=== PATIENT | male | born 1975 | race Caucasian/White ===

== ENCOUNTER 2018-05-08 09:48 | Emergency (ER) | payer SELFPAY ==
[~2018-05-08] VITALS: Ht 162.5 cm; Wt 72.6 kg
[~2018-05-08 09:48] MED LIST: B-1100 MG PO; B12,B-12,B 12500 MC1 PO; BENADRYL25 M1 PO; BENADRYL25 MG PO; CIPRO500 MG PO; CLINDAMYCIN HC300 MG PO; DARVOCET N 1001 TAB PO; DELTASONE10 MG PO; DIPHENHYDRAMINE25 M1 PO; DUONEB 3 MG/3 ML3 M1 INH; FOLIC ACID1 MG PO; HYDROCHLOROTHIA25 MG PO; LIBRIUM10 MG PO; LIDOCAINE VISC100 ML MM; MEDROL DOSEPAK4 MG PO; NKHM; PEPCID20 MG PO; PREDNICOT20 MG PO; PREDNISONE10 MG PO; PREDNISONE20 MG PO; PRILOSEC20 MG PO; TAGAMET300 MG PO; TRAMADOL HCL50 MG PO; TRAMADOL50 MG PO; ULTRAM50 MG PO; VALIUM5 MG PO; VICODIN 5/500 505 MG PO; ZANTAC150 MG PO; ZESTORETIC 12.51 TA2 PO; ZITHROMAX Z PA250 MG PO; [UNRECOGNIZED DRUG - REMARK]
[2018-05-08 10:42] LABS: BASO % 0.3 % (0.0-1.0); HEMATOCRIT 47.8 % (42.0-52.0); LYMPH # 0.9 10*3/uL (1.3-4.4); LYMPH % 13.7 % (27.0-41.0); MEAN CELL VOLUME 94.1 fl (80.0-94.0); MEAN CORPUSCULAR HGB 33.5 pg (27.0-31.0); MEAN CORPUSCULAR HGB CONC 35.6 g/dl (33.0-37.0); MEAN PLATELET VOLUME 9.7 fl (9.6-12.3); MONO # 0.5 10*3/uL (0.1-1.0); MONO % 7.6 % (3.0-9.0); NEUT # 5.1 10*3/uL (2.3-7.9); NEUT % 78.1 % (47.0-73.0); PLATELET COUNT AUTOMATED 195 10*3/uL (130-400); RED BLOOD COUNT 5.08 10*6/uL (4.50-5.90); RED CELL DISTRI WIDTH 13.6 % (0-14.5); WHITE BLOOD COUNT 6.6 10*3/uL (4.8-10.8)
[2018-05-08 10:57] LABS: ALBUMIN 3.9 gm/dl (3.1-4.5); ALKALINE PHOSPHATASE 84 U/L (45-117); BUN 9 mg/dl (7-24); CHLORIDE 95 mmol/L (98-107); CREATININE 0.67 mg/dL (0.70-1.30); LIPASE 130 U/L (73-393); POTASSIUM 4.1 mmol/L (3.5-5.1); SGOT/AST 33 IU/L (3-35); SGPT/ALT 27 U/L (12-78); SODIUM 130 mmol/L (136-145); TOTAL PROTEIN 7.5 gm/dL (6.4-8.2)
[2018-05-08 10:59] LABS: ETHYL ALCOHOL < 3.0 mg/dl (<3)
[2018-05-08] MEDS ORDERED: ZOFRAN ODT4 MG SL (11:37)
[2018-05-08] MEDS ORDERED: ALBUTEROL2.5 MG/0.5 INH (11:37)
== END 2018-05-08 13:02 | disposition home or self-care (01) ==
LOC: ED 09:48
PROVIDERS: Nurse Practitioner Family
DX: R11.0 Nausea (principal); E86.0 Dehydration; J44.9 Chronic obstructive pulmonary disease, unspecified; Z88.6 Allergy status to analgesic agent; Z79.2 Long term (current) use of antibiotics; Z79.899 Other long term (current) drug therapy

== ENCOUNTER → 2018-06-28 | Outpatient (CLI) | payer SELFPAY ==
[~2018-06-28] MED LIST changes: +ALBUTEROL2.5 MG/0.5 INH; +Motrin,Rufen800 MG PO; +ZOFRAN ODT4 MG SL
== END | disposition home or self-care (01) ==
LOC: US 15:52
DX: R94.5 Abnormal results of liver function studies (principal)

== ENCOUNTER 2022-07-27 14:23 | Emergency (ER) | payer BC ==
[~2022-07-27] VITALS: Ht 180.3 cm; Wt 78.0 kg
[2022-07-27 15:11] LABS: BASO % 0.5 % (0.0-1.0); EOS # 0.1 10*3/uL (0.0-0.4); EOS % 1.4 % (1.0-4.0); LYMPH # 2.3 10*3/uL (1.3-4.4); LYMPH % 27.4 % (27.0-41.0); MEAN CELL VOLUME 97.6 fl (80.0-94.0); MEAN CORPUSCULAR HGB 33.5 pg (27.0-31.0); MEAN CORPUSCULAR HGB CONC 34.3 g/dl (33.0-37.0); MONO % 11.3 % (3.0-9.0); NEUT % 59.2 % (47.0-73.0); PLATELET COUNT AUTOMATED 198 10*3/uL (130-400); RED BLOOD COUNT 4.51 10*6/uL (4.50-5.90); RED CELL DISTRI WIDTH 12.4 % (0-14.5); WHITE BLOOD COUNT 8.5 10*3/uL (4.8-10.8)
[2022-07-27 15:26] LABS: ACT PARTIAL THROMBO TIME 31.3 SECONDS (20.0-32.1); INTERNATIONAL NORM RATIO 0.9 (2.0-3.5)
[2022-07-27 15:27] LABS: ALKALINE PHOSPHATASE 87 U/L (46-116); BUN 8 mg/dl (9-23); CHLORIDE 100 mmol/L (98-107); POTASSIUM 3.6 mmol/L (3.4-5.1); SGPT/ALT 19 U/L (10-49)
[2022-07-27] MEDS ORDERED: VIBRA-TAB100 MG PO (17:17)
== END 2022-07-27 17:29 | disposition home or self-care (01) ==
LOC: ED 14:23
PROVIDERS: Emergency Medicine
DX: L03.116 Cellulitis of left lower limb (principal); Z79.899 Other long term (current) drug therapy; Z87.891 Personal history of nicotine dependence

== ENCOUNTER → 2023-03-09 | Outpatient (CLI) | payer BC ==
[~2023-03-09] MED LIST changes: +VIBRA-TAB100 MG PO
[2023-03-09 15:19] LABS: BASO % 0.5 % (0.0-1.0); EOS % 0.3 % (1.0-4.0); HEMATOCRIT 44.5 % (42.0-52.0); LYMPH # 2.5 10*3/uL (1.3-4.4); LYMPH % 41.5 % (27.0-41.0); MEAN CORPUSCULAR HGB 35.3 pg (27.0-31.0); MEAN CORPUSCULAR HGB CONC 35.3 g/dl (33.0-37.0); MEAN PLATELET VOLUME 9.3 fl (9.6-12.3); MONO # 0.5 10*3/uL (0.1-1.0); MONO % 7.8 % (3.0-9.0); NEUT % 49.6 % (47.0-73.0); PLATELET COUNT AUTOMATED 177 10*3/uL (130-400); RED BLOOD COUNT 4.45 10*6/uL (4.50-5.90); RED CELL DISTRI WIDTH 12.2 % (0-14.5); WHITE BLOOD COUNT 6.1 10*3/uL (4.8-10.8)
[2023-03-09 15:48] LABS: ALKALINE PHOSPHATASE 61 U/L (46-116); CHLORIDE 102 mmol/L (98-107); CHOLESTEROL 172 mg/dL (<200); LDL CHOLESTEROL 45 mg/dL (9-159); LIPASE 40 U/L (12-53); POTASSIUM 3.3 mmol/L (3.4-5.1); SGPT/ALT 39 U/L (10-49); TOTAL PROTEIN 6.8 gm/dL (6.0-8.0); TRIGLYCERIDES 263 mg/dl (<150)
[2023-03-09 15:49] LABS: BUN < 5 mg/dl (9-23)
== END | disposition home or self-care (01) ==
LOC: LAB 14:48
PROVIDERS: ATTEND Nurse Practitioner Family
DX: I10 Essential (primary) hypertension (principal); K62.5 Hemorrhage of anus and rectum; F10.10 Alcohol abuse, uncomplicated; Z72.0 Tobacco use

== ENCOUNTER → 2023-04-19 | Outpatient (CLI) | payer OTHER, BC | END | disposition home or self-care (01) | LOC: LAB 09:45 | PROVIDERS: ATTEND Family Medicine | DX: R79.89 Other specified abnormal findings of blood chemistry (principal); R53.83 Other fatigue ==

== ENCOUNTER 2023-05-18 09:09 | Emergency (ER) | payer BC ==
[~2023-05-18] VITALS: Ht 162.5 cm; Wt 68.9 kg
[2023-05-18] MEDS ORDERED: LISINOPRIL-HCT1 EACH PO (10:03)
[2023-05-18] MEDS ORDERED: LISINOPRIL20 MG PO (10:04)
[2023-05-18] MEDS ORDERED: PREDNISONE50 MG PO (11:33)
[2023-05-18] MEDS ORDERED: CYCLOBENZAPRINE10 MG PO (11:33)
== END 2023-05-18 11:54 | disposition home or self-care (01) ==
LOC: ED 09:09
DX: M54.42 Lumbago with sciatica, left side (principal); M79.605 Pain in left leg; F10.10 Alcohol abuse, uncomplicated; F17.200 Nicotine dependence, unspecified, uncomplicated

== ENCOUNTER 2024-07-29 09:54 | Emergency (ER) | payer OTHER ==
[~2024-07-29] VITALS: Ht 162.5 cm; Wt 73.0 kg
[~2024-07-29 09:54] MED LIST changes: +CYCLOBENZAPRINE10 MG PO; +LISINOPRIL-HCT1 EACH PO; +LISINOPRIL20 MG PO; +PREDNISONE50 MG PO
[2024-07-29] MEDS ORDERED: LISINOPRIL-HCT1 EACH PO (13:47)
[2024-07-29] MEDS ORDERED: AVPAK AZITHROM250 MG PO (13:47)
== END 2024-07-29 13:56 | disposition home or self-care (01) ==
LOC: ED 09:54
DX: J44.9 Chronic obstructive pulmonary disease, unspecified (principal); Z20.822 Contact with and (suspected) exposure to COVID-19; I10 Essential (primary) hypertension; K21.9 Gastro-esophageal reflux disease without esophagitis; F10.10 Alcohol abuse, uncomplicated; F17.200 Nicotine dependence, unspecified, uncomplicated

== ENCOUNTER 2024-08-13 11:48 | Emergency (ER) | payer OTHER ==
[~2024-08-13 11:48] MED LIST changes: +AVPAK AZITHROM250 MG PO
[2024-08-13] MEDS ORDERED: PREDNISONE20 M1 PO (12:54)
[2024-08-13] MEDS ORDERED: predniSONE 20 MG TAB PO ONE (12:55)
[2024-08-13] MEDS ORDERED: Acetaminophen/Hydrocodone 5 MG/325 MG TABLET PO ONE (12:55)
== END 2024-08-13 13:08 | disposition home or self-care (01) ==
LOC: ED 11:48
DX: M54.41 Lumbago with sciatica, right side (principal); M79.604 Pain in right leg; M25.551 Pain in right hip; J44.9 Chronic obstructive pulmonary disease, unspecified; E78.00 Pure hypercholesterolemia, unspecified; E83.41 Hypermagnesemia; I10 Essential (primary) hypertension; K21.9 Gastro-esophageal reflux disease without esophagitis; F17.200 Nicotine dependence, unspecified, uncomplicated; F10.10 Alcohol abuse, uncomplicated

== ENCOUNTER 2024-08-28 10:24 | Emergency (ER) | payer OTHER ==
[~2024-08-28] VITALS: Wt 78.0 kg
[~2024-08-28 10:24] MED LIST changes: +PREDNISONE20 M1 PO
[2024-08-28] MEDS ORDERED: Ketorolac Tromethamine 30 MG/ML VIAL IM ONE (10:45)
[2024-08-28] MEDS ORDERED: LISINOPRIL 20 MG TAB PO SCH (11:40)
[2024-08-28] MEDS ORDERED: hydroCHLOROthiazide 25 MG TAB PO SCH (11:40)
[2024-08-28] MEDS ORDERED: LIDODERM1 EACH TD (12:51)
[2024-08-28] MEDS ORDERED: METHOCARBAMOL750 M1 PO (12:51)
[2024-08-28] MEDS ORDERED: LISINOPRIL-HCT1 EACH PO (12:56)
== END 2024-08-28 12:48 | disposition home or self-care (01) ==
LOC: ED 10:24
DX: M54.16 Radiculopathy, lumbar region (principal); M54.9 Dorsalgia, unspecified; I10 Essential (primary) hypertension; K21.9 Gastro-esophageal reflux disease without esophagitis; J44.9 Chronic obstructive pulmonary disease, unspecified; F17.200 Nicotine dependence, unspecified, uncomplicated; Z79.899 Other long term (current) drug therapy

== ENCOUNTER 2024-09-12 11:31 | Emergency (ER) | payer OTHER ==
[~2024-09-12] VITALS: Ht 162.5 cm; Wt 77.1 kg
[~2024-09-12 11:31] MED LIST changes: +LIDODERM1 EACH TD; +METHOCARBAMOL750 M1 PO
[2024-09-12] MEDS ORDERED: SODIUM CHLORIDE 0.9% 1,000 ML IV ONE (12:00)
[2024-09-12] MEDS ORDERED: FAMOTIDINE 50 ML IV ONE (12:00)
[2024-09-12] MEDS ORDERED: Metoclopramide Hydrochloride 10 MG/2 ML VIAL IV ONE (12:00)
[2024-09-12] MEDS ORDERED: diphenhydrAMINE hydrochloride 50 MG/ML VIAL IV ONE (12:00)
[2024-09-12 12:11] LABS: BASO % 0.9 % (0.0-1.0); EOS # 0.1 10*3/uL (0.0-0.4); EOS % 1.5 % (1.0-4.0); HEMATOCRIT 46.6 % (42.0-52.0); MEAN CELL VOLUME 99.4 fl (80.0-94.0); MEAN CORPUSCULAR HGB 33.5 pg (27.0-31.0); MEAN CORPUSCULAR HGB CONC 33.7 g/dl (33.0-37.0); MEAN PLATELET VOLUME 9.9 fl (9.6-12.3); MONO # 0.5 10*3/uL (0.1-1.0); MONO % 11.8 % (3.0-9.0); NEUT % 65.9 % (47.0-73.0); PLATELET COUNT AUTOMATED 181 10*3/uL (130-400); RED BLOOD COUNT 4.69 10*6/uL (4.50-5.90); RED CELL DISTRI WIDTH 12.5 % (0-14.5); WHITE BLOOD COUNT 4.6 10*3/uL (4.8-10.8)
[2024-09-12 12:31] LABS: BUN 12 mg/dl (9-23); CHLORIDE 110 mmol/L (98-107); POTASSIUM 4.5 mmol/L (3.4-5.1)
[2024-09-12] MEDS ORDERED: Ondansetron4 MG PO (12:41)
[2024-09-12] MEDS ORDERED: PEPCID20 MG PO (12:41)
== END 2024-09-12 13:16 | disposition home or self-care (01) ==
LOC: ED 11:31
PROVIDERS: Emergency Medicine
DX: R11.2 Nausea with vomiting, unspecified (principal); R19.7 Diarrhea, unspecified; R06.02 Shortness of breath; J44.9 Chronic obstructive pulmonary disease, unspecified; F17.200 Nicotine dependence, unspecified, uncomplicated; Z79.899 Other long term (current) drug therapy

== ENCOUNTER 2024-10-20 13:48 | Emergency (ER) | payer OTHER ==
[~2024-10-20] VITALS: Ht 162.5 cm; Wt 78.0 kg
[~2024-10-20 13:48] MED LIST changes: +Ondansetron4 MG PO
[2024-10-20] MEDS ORDERED: Acetaminophen/Oxycodone 5 MG/325 MG TABLET PO ONE (14:15)
[2024-10-20] MEDS ORDERED: LISINOPRIL 20 MG TAB PO ONE (14:15)
[2024-10-20] MEDS ORDERED: LISINOPRIL20 MG PO (15:07)
[2024-10-20] MEDS ORDERED: NAPROSYN500 MG PO (15:07)
[2024-10-20] MEDS ORDERED: methylPREDNISolone sod succ 125 MG VIAL IM ONE (15:10)
[2024-10-20] MEDS ORDERED: predniSONE 20 MG TAB PO ONE (15:15)
== END 2024-10-20 15:30 | disposition home or self-care (01) ==
LOC: ED 13:48
DX: M16.11 Unilateral primary osteoarthritis, right hip (principal); I10 Essential (primary) hypertension; J44.9 Chronic obstructive pulmonary disease, unspecified; F17.200 Nicotine dependence, unspecified, uncomplicated; Z79.899 Other long term (current) drug therapy

== ENCOUNTER 2025-04-08 14:47 | Emergency (ER) | payer OTHER ==
[~2025-04-08] VITALS: Wt 66.7 kg
[~2025-04-08 14:47] MED LIST changes: +NAPROSYN500 MG PO
[2025-04-08] MEDS ORDERED: Ondansetron Hydrochloride 4 MG/2 ML VIAL IV ONE (15:15)
[2025-04-08 15:27] LABS: BASO # 0.1 10*3/uL (0.0-0.1); BASO % 0.8 % (0.0-1.0); EOS # 0.0 10*3/uL (0.0-0.4); EOS % 0.5 % (1.0-4.0); MEAN CELL VOLUME 99.4 fl (80.0-94.0); MEAN CORPUSCULAR HGB 33.8 pg (27.0-31.0); MEAN PLATELET VOLUME 9.9 fl (9.6-12.3); MONO # 0.8 10*3/uL (0.1-1.0); MONO % 12.1 % (3.0-9.0); NEUT # 4.1 10*3/uL (2.3-7.9); NEUT % 61.2 % (47.0-73.0); NUCLEATED RED BLOOD CELL 0.0 % (0.0-0.0); NUCLEATED RED BLOOD CELL 0.0 10*3/uL (0.0-0.0); PLATELET COUNT AUTOMATED 195 10*3/uL (130-400); RED CELL DISTRI WIDTH 11.9 % (0-14.5)
[2025-04-08 15:52] LABS: BUN 6 mg/dl (9-23); ETHYL ALCOHOL 166.6 mg/dl (<3); SGPT/ALT 50 U/L (5-49)
== END 2025-04-08 17:02 | disposition home or self-care (01) ==
LOC: ED 14:47
PROVIDERS: Emergency Medicine
DX: S30.0XXA Contusion of lower back and pelvis, initial encounter (principal); R29.6 Repeated falls; F10.10 Alcohol abuse, uncomplicated; M51.369 Other intervertebral disc degeneration, lumbar region without mention of lumbar back pain or lower extremity pain; M16.11 Unilateral primary osteoarthritis, right hip; R74.01 Elevation of levels of liver transaminase levels; F17.210 Nicotine dependence, cigarettes, uncomplicated; I10 Essential (primary) hypertension; K21.9 Gastro-esophageal reflux disease without esophagitis; J44.9 Chronic obstructive pulmonary disease, unspecified; W19.XXXA Unspecified fall, initial encounter; Y93.89 Activity, other specified; Y92.89 Other specified places as the place of occurrence of the external cause; Y99.8 Other external cause status

== ENCOUNTER → 2025-04-15 | Outpatient (CLI) | payer OTHER ==
[2025-04-15 13:17] LABS: BASO # 0.1 10*3/uL (0.0-0.1); BASO % 0.8 % (0.0-1.0); EOS # 0.0 10*3/uL (0.0-0.4); EOS % 0.6 % (1.0-4.0); MEAN CELL VOLUME 99.0 fl (80.0-94.0); MEAN CORPUSCULAR HGB 33.4 pg (27.0-31.0); MEAN PLATELET VOLUME 10.0 fl (9.6-12.3); MONO # 0.5 10*3/uL (0.1-1.0); MONO % 7.0 % (3.0-9.0); NEUT # 3.8 10*3/uL (2.3-7.9); NEUT % 57.7 % (47.0-73.0); NUCLEATED RED BLOOD CELL 0.0 % (0.0-0.0); NUCLEATED RED BLOOD CELL 0.0 10*3/uL (0.0-0.0); PLATELET COUNT AUTOMATED 220 10*3/uL (130-400); RED CELL DISTRI WIDTH 11.9 % (0-14.5)
[2025-04-15 14:09] LABS: BUN 7 mg/dl (9-23); LDL CHOLESTEROL 88 mg/dL (9-159); SGPT/ALT 40 U/L (5-49)
== END | disposition home or self-care (01) ==
LOC: LAB 12:46
PROVIDERS: ATTEND Nurse Practitioner Family
DX: I10 Essential (primary) hypertension (principal); J44.9 Chronic obstructive pulmonary disease, unspecified; K21.9 Gastro-esophageal reflux disease without esophagitis; E78.1 Pure hyperglyceridemia; Z13.29 Encounter for screening for other suspected endocrine disorder; Z76.89 Persons encountering health services in other specified circumstances; F10.10 Alcohol abuse, uncomplicated; Z11.59 Encounter for screening for other viral diseases

== ENCOUNTER 2025-05-17 19:42 | Emergency (ER) | payer OTHER ==
[~2025-05-17] VITALS: Ht 162.5 cm; Wt 73.5 kg
[2025-05-17] MEDS ORDERED: Ondansetron Hydrochloride 4 MG/2 ML VIAL IV ONE (20:05)
[2025-05-17] MEDS ORDERED: SODIUM CHLORIDE 0.9% 1,000 ML IV ONE (20:05)
[2025-05-17] MEDS ORDERED: IOHEXOL 300 MG/ML 100 ML VIAL IV ONE (20:10)
[2025-05-17 20:31] LABS: BASO # 0.0 10*3/uL (0.0-0.1); BASO % 0.6 % (0.0-1.0); EOS # 0.1 10*3/uL (0.0-0.4); EOS % 1.0 % (1.0-4.0); MEAN CELL VOLUME 98.0 fl (80.0-94.0); MEAN CORPUSCULAR HGB 32.7 pg (27.0-31.0); MEAN PLATELET VOLUME 9.5 fl (9.6-12.3); MONO # 0.6 10*3/uL (0.1-1.0); MONO % 8.7 % (3.0-9.0); NEUT # 3.5 10*3/uL (2.3-7.9); NEUT % 50.1 % (47.0-73.0); NUCLEATED RED BLOOD CELL 0.0 % (0.0-0.0); NUCLEATED RED BLOOD CELL 0.0 10*3/uL (0.0-0.0); PLATELET COUNT AUTOMATED 214 10*3/uL (130-400); RED CELL DISTRI WIDTH 12.3 % (0-14.5)
[2025-05-17] MEDS ORDERED: IOHEXOL 300 MG/ML 100 ML VIAL ONE (20:38)
[2025-05-17 20:53] LABS: BUN 6 mg/dl (9-23); ETHYL ALCOHOL 224.8 mg/dl (<3); SGPT/ALT 37 U/L (5-49)
[2025-05-17] MEDS ORDERED: SODIUM CHLORIDE 0.9% 500 ML IV ONE (20:57)
[2025-05-17 22:14] LABS: BILIRUBIN Negative (Negative); BLOOD Negative (Negative); CLARITY Clear (Clear); COLOR Yellow (Yellow); KETONE Negative (Negative); LEUKO ESTERASE Negative (Negative); NITRITE Negative (Negative); PH 5.5 (4.5-8.0); SPECIFIC GRAVITY <= 1.005 (1.001-1.030); UROBILINOGEN 0.2 E.U./dl (0.0-1.0)
[2025-05-17] MEDS ORDERED: NAPROSYN500 MG PO (22:41)
[2025-05-17] MEDS ORDERED: TAMSULOSIN HCL0.4 MG PO (22:41)
[2025-05-17 22:54] LABS: EPITHELIAL CELLS 0-2; WBC 0-2 wbc/hpf (0-5)
[2025-05-17] MEDS ORDERED: Acetaminophen/Hydrocodone 5 MG/325 MG TABLET PO ONE (23:10)
== END 2025-05-17 23:12 | disposition home or self-care (01) ==
LOC: ED 19:42
PROVIDERS: Emergency Medicine
DX: F10.20 Alcohol dependence, uncomplicated (principal); R10.84 Generalized abdominal pain; R33.9 Retention of urine, unspecified; F17.200 Nicotine dependence, unspecified, uncomplicated; Z79.899 Other long term (current) drug therapy; Y90.7 Blood alcohol level of 200-239 mg/100 ml